=== PATIENT | female | born 1970 | race American Indian/Alaskan Native ===

== ENCOUNTER 2018-05-31 13:13 | Outpatient (CLI) | payer OTHER ==
[2018-05-31] MEDS ORDERED: XYLOCAINE TOPICAL 4% TP ONE (14:07)
== END 2018-05-31 13:14 | disposition home or self-care (01) ==
LOC: WOUND 13:13
PROVIDERS: ATTEND Surgery
DX: S81.852A Open bite, left lower leg, initial encounter (principal); E66.9 Obesity, unspecified; Z85.3 Personal history of malignant neoplasm of breast; Z87.891 Personal history of nicotine dependence; Z68.35 Body mass index [BMI] 35.0-35.9, adult; W64.XXXA Exposure to other animate mechanical forces, initial encounter; Y93.89 Activity, other specified; Y92.89 Other specified places as the place of occurrence of the external cause; Y99.8 Other external cause status
CPT/HCPCS: 11042; G0463; 99215

== ENCOUNTER 2018-06-14 07:58 | Outpatient (CLI) | payer OTHER ==
[2018-06-14] MEDS ORDERED: XYLOCAINE TOPICAL 4% TP ONE ×2 (08:22→08:34)
== END 2018-06-14 07:59 | disposition home or self-care (01) ==
LOC: WOUND 07:58
PROVIDERS: ATTEND Surgery
DX: L97.222 Non-pressure chronic ulcer of left calf with fat layer exposed (principal); E66.9 Obesity, unspecified; Z85.3 Personal history of malignant neoplasm of breast; Z87.891 Personal history of nicotine dependence; Z68.35 Body mass index [BMI] 35.0-35.9, adult